=== PATIENT | female | born 1935 | race Caucasian/White ===

== ENCOUNTER 2023-07-21 08:27 | Inpatient (IN) | payer OTHER ==
[2023-07-21] MEDS ORDERED: ASPIRIN 81 MG CHEWABLE TABLETS ONE (08:55)
[2023-07-21] MEDS: ASPIRIN 81 MG CHEWABLE TABLETS PO ONE (09:00)
[2023-07-21] MEDS: LACTATED RINGERS SOLUTION 1000 ML INFUS.BAG IV ONE ×2 (09:00→11:00)
[2023-07-21] MEDS: ONDANSETRON 4 MG/2 ML VIAL IVPUSH ONE (09:15)
[2023-07-21 09:29] LABS: INR 0.9 (0.83-1.09); PROTHROMBIN TIME (PATIENT) 10.3 SEC (9.7-13.0)
[2023-07-21 09:31] LABS: ACTIVATED PTT 29.6 SECONDS (25.2-36.5)
[2023-07-21 09:33] LABS: HEMATOCRIT 49.7 % (32.4-45.2); HEMOGLOBIN 16.5 G/dL (10.7-15.3); MCH 32.8 pg (25.7-33.7); MCHC 33.2 g/dl (32.0-36.0); MEAN CELL VOLUME 99.1 fl (80-96); MEAN PLT VOLUME 8.4 fl (7.5-11.1); PLATELET COUNT 282.1 10^3/uL (134-434); RBC 5.02 10^6/uL (3.60-5.2); RDW 14.9 % (11.6-15.6); WHITE BLOOD COUNT 14.2 10^3/uL (4.0-10.8)
[2023-07-21 09:37] LABS: ALBUMIN 4.7 g/dl (3.4-5.0); ALK PHOS 105 U/L (45-117); ANION GAP 20 mmol/L (4-13); BILIRUBIN,TOTAL 0.7 mg/dl (0.2-1); CALCIUM 10.1 mg/dl (8.5-10.1); CHLORIDE 89 mmol/L (98-107); CO2 29 mmol/L (21-32); CREATININE 2.7 mg/dl (0.6-1.3); GLUCOSE,RANDOM 156 mg/dl (74-106); POTASSIUM 3.9 mmol/L (3.5-5.1); SGOT/AST 18 U/L (15-37); SGPT/ALT 9 U/L (7-52); SODIUM 138 mmol/L (136-145); TOT PROT 8.5 g/dl (6.4-8.2)
[2023-07-21 09:59] LABS: PLATELET ESTIMATE ADEQUATE
[2023-07-21 10:53] LABS: N-TERMINAL BNP 2428.5 pg/ml (5-450)
[2023-07-21] MEDS ORDERED: DEXTROSE 5%-LACTATED RINGERS 1,000 ML IV SCH (11:30)
[2023-07-21 11:40] LABS: LACTIC ACID 3.3 mmol/L (0.4-2.0)
[2023-07-21 12:52] LABS: ANION GAP 13 mmol/L (4-13); CALCIUM 9.1 mg/dl (8.5-10.1); CHLORIDE 91 mmol/L (98-107); CO2 32 mmol/L (21-32); CREATININE 2.1 mg/dl (0.6-1.3); GLUCOSE,RANDOM 140 mg/dl (74-106); POTASSIUM 3.6 mmol/L (3.5-5.1); SODIUM 136 mmol/L (136-145)
[2023-07-21] MEDS ORDERED: HEPARIN NA (PORCINE) 5,000 UNITS/ML 1ML VIAL IVPUSH PRN ×2 (13:10)
[2023-07-21] MEDS: HEPARIN NA (PORCINE) 5,000 UNITS/ML 1ML VIAL IVPUSH ONE (13:45)
[2023-07-21] MEDS: HEPARIN INFUSION - 25,000 UNITS/500 ML INFUS.BAG IVPB SCH (13:46)
[2023-07-21] MEDS ORDERED: METOPROLOL TARTRATE 5 MG/5 ML VIAL IVPUSH PRN ×2 (15:40→15:43)
[2023-07-22 08:24] LABS: HEMATOCRIT 42.6 % (32.4-45.2); HEMOGLOBIN 13.8 G/dL (10.7-15.3); MCH 32.4 pg (25.7-33.7); MCHC 32.4 g/dl (32.0-36.0); MEAN CELL VOLUME 100.1 fl (80-96); MEAN PLT VOLUME 8.9 fl (7.5-11.1); PLATELET COUNT 235.5 10^3/uL (134-434); RBC 4.26 10^6/uL (3.60-5.2); RDW 15.2 % (11.6-15.6); WHITE BLOOD COUNT 7.2 10^3/uL (4.0-10.8)
[2023-07-22 08:55] LABS: ALBUMIN 3.8 g/dl (3.4-5.0); ALK PHOS 76 U/L (45-117); ANION GAP 11 mmol/L (4-13); BILIRUBIN,TOTAL 0.8 mg/dl (0.2-1); CALCIUM 9.2 mg/dl (8.5-10.1); CHLORIDE 92 mmol/L (98-107); CO2 36 mmol/L (21-32); CREATININE 2.5 mg/dl (0.6-1.3); GLUCOSE,RANDOM 134 mg/dl (74-106); POTASSIUM 4.6 mmol/L (3.5-5.1); SGOT/AST 13 U/L (15-37); SGPT/ALT 7 U/L (7-52); SODIUM 139 mmol/L (136-145); TOT PROT 6.9 g/dl (6.4-8.2)
[2023-07-22] MEDS: DEXTROSE 5%-LACTATED RINGERS 1,000 ML IV SCH (11:01)
[2023-07-22] MEDS: THIAMINE HCL 200 MG/2 ML VIAL IVPB SCH (11:01)
[2023-07-22] MEDS: ACETAMINOPHEN 1000 MG/100 ML BAG IVPB PRN (14:37)
[2023-07-23 09:51] LABS: ALBUMIN 3.9 g/dl (3.4-5.0); ALK PHOS 73 U/L (45-117); ANION GAP 11 mmol/L (4-13); BILIRUBIN,TOTAL 0.6 mg/dl (0.2-1); CHLORIDE 92 mmol/L (98-107); CO2 37 mmol/L (21-32); GLUCOSE,RANDOM 101 mg/dl (74-106); PHOSPHOROUS 4.6 (2.5-4.9); SGOT/AST 13 U/L (15-37); SGPT/ALT 6 U/L (7-52); SODIUM 140 mmol/L (136-145); TOT PROT 6.9 g/dl (6.4-8.2)
[2023-07-23 10:16] LABS: EPITHELIAL CELLS 0-5 /hpf
[2023-07-23 10:33] LABS: BASO % 0.3 % (0-2.0); EOS % 0.3 % (0-4.5); HEMATOCRIT 40.5 % (32.4-45.2); HEMOGLOBIN 13.5 GM/dL (10.7-15.3); LYMPH % 12.4 % (8-40); MCH 32.8 pg (25.7-33.7); MCHC 33.4 g/dl (32.0-36.0); MEAN CELL VOLUME 98.3 fl (80-96); MEAN PLT VOLUME 8.9 fl (7.5-11.1); MONO % 9.6 % (3.8-10.2); NEUT % 77.4 % (42.8-82.8); PLATELET COUNT 239 10^3/uL (134-434); RBC 4.12 M/mm3 (3.60-5.2); WHITE BLOOD COUNT 9.1 K/mm3 (4.0-10.0)
[2023-07-23] MEDS: AMINO ACIDS 4.25%/D5W 1,000 ML IV ONE (15:39)
[2023-07-24 08:50] LABS: ALBUMIN 3.4 g/dl (3.4-5.0); ALK PHOS 57 U/L (45-117); ANION GAP 8 mmol/L (4-13); BILIRUBIN,TOTAL 0.6 mg/dl (0.2-1); CALCIUM 8.4 mg/dl (8.5-10.1); CHLORIDE 100 mmol/L (98-107); CO2 33 mmol/L (21-32); CREATININE 1.3 mg/dl (0.6-1.3); GLUCOSE,RANDOM 131 mg/dl (74-106); MAGNESIUM 2.6 mg/dL (1.8-2.4); PHOSPHOROUS 2.1 (2.5-4.9); POTASSIUM 3.2 mmol/L (3.5-5.1); SGOT/AST 13 U/L (15-37); SGPT/ALT 6 U/L (7-52); SODIUM 141 mmol/L (136-145); TOT PROT 5.9 g/dl (6.4-8.2)
[2023-07-24 09:12] LABS: BASO % 0.2 % (0-2.0); EOS % 1.2 % (0-4.5); HEMATOCRIT 37.5 % (32.4-45.2); HEMOGLOBIN 12.5 GM/dL (10.7-15.3); LYMPH % 11.2 % (8-40); MCH 32.8 pg (25.7-33.7); MCHC 33.3 g/dl (32.0-36.0); MEAN CELL VOLUME 98.7 fl (80-96); MEAN PLT VOLUME 8.6 fl (7.5-11.1); MONO % 8.7 % (3.8-10.2); NEUT % 78.7 % (42.8-82.8); PLATELET COUNT 213 10^3/uL (134-434); RBC 3.81 M/mm3 (3.60-5.2); WHITE BLOOD COUNT 8.4 K/mm3 (4.0-10.0)
[2023-07-24] MEDS: POTASSIUM CHLORIDE ORAL LIQUID 20 MEQ/15 ML PO ONE (11:11)
[2023-07-24 12:04] VITALS: RESP 18
[2023-07-24 14:47] VITALS: BMI 19.7
[2023-07-25 08:05] LABS: ALBUMIN 3.1 g/dl (3.4-5.0); ALK PHOS 62 U/L (45-117); ANION GAP 7 mmol/L (4-13); BILIRUBIN,TOTAL 0.5 mg/dl (0.2-1); CALCIUM 8.2 mg/dl (8.5-10.1); CHLORIDE 100 mmol/L (98-107); CO2 31 mmol/L (21-32); CREATININE 1.1 mg/dl (0.6-1.3); GLUCOSE,RANDOM 393 mg/dl (74-106); POTASSIUM 3.8 mmol/L (3.5-5.1); SGOT/AST 11 U/L (15-37); SGPT/ALT 5 U/L (7-52); SODIUM 138 mmol/L (136-145); TOT PROT 5.4 g/dl (6.4-8.2)
[2023-07-25 09:24] LABS: BASO % 0.3 % (0-2.0); EOS % 2.5 % (0-4.5); HEMATOCRIT 36.3 % (32.4-45.2); HEMOGLOBIN 11.9 GM/dL (10.7-15.3); LYMPH % 15.7 % (8-40); MCH 32.5 pg (25.7-33.7); MCHC 32.9 g/dl (32.0-36.0); MEAN CELL VOLUME 98.8 fl (80-96); MONO % 10.7 % (3.8-10.2); NEUT % 70.8 % (42.8-82.8); PLATELET COUNT 206 10^3/uL (134-434); RBC 3.67 M/mm3 (3.60-5.2); RDW 15.2 % (11.6-15.6); WHITE BLOOD COUNT 7.8 K/mm3 (4.0-10.0)
[2023-07-25] MEDS ORDERED: amLODIPine BESYLATE 10 MG TABLET (FP) PO SCH (10:00)
[2023-07-25] MEDS: amLODIPine BESYLATE 5 MG TABLET (FP) PO SCH (10:10)
[2023-07-25 12:14] VITALS: BP 122/69; PULSE 78; TEMP 98
[2023-07-25] MEDS ORDERED: ATORVASTATIN CA 20 MG TABLET (FP) PO SCH (22:00)
== END 2023-07-25 14:01 | disposition home or self-care (01) | DRG 683 ==
LOC: FER 08:27 → FM/S 13:47
PROVIDERS: ADMIT Internal Medicine; ATTEND Internal Medicine
DX: N17.9 Acute kidney failure, unspecified (principal); I24.89 Other forms of acute ischemic heart disease; K56.50 Intestinal adhesions [bands], unspecified as to partial versus complete obstruction; J98.11 Atelectasis; R11.2 Nausea with vomiting, unspecified; E78.5 Hyperlipidemia, unspecified; K43.9 Ventral hernia without obstruction or gangrene; I12.9 Hypertensive chronic kidney disease with stage 1 through stage 4 chronic kidney disease, or unspecified chronic kidney disease; N18.9 Chronic kidney disease, unspecified; F10.90 Alcohol use, unspecified, uncomplicated; I44.0 Atrioventricular block, first degree; I45.10 Unspecified right bundle-branch block; E86.0 Dehydration; K57.90 Diverticulosis of intestine, part unspecified, without perforation or abscess without bleeding; Z85.43 Personal history of malignant neoplasm of ovary
CPT/HCPCS: 0241U-QW; 36415; 71045-TC-FY; 71275-TC; 74018-TC-FY; 74177-TC; 80048; 80053; 81003; 81015; 82570; 83605; 83690; 83735; 83880; 84100; 84300; 84484; 85025; 85027; 85379; 85610; 85730; 86140; 86850; 86900; 86901; 93005; 97116-GP; 97162-GP; 99291; J0131; J1644; Q9967